=== PATIENT | male | born 2000 | race Caucasian/White ===

== ENCOUNTER 2022-01-10 17:21 | Emergency (ER) | payer MEDICAID, SELFPAY ==
[~2022-01-10] VITALS: Ht 182.9 cm; Wt 95.3 kg
[2022-01-10 17:25] VITALS: BP_SYST 127
--- NOTE | 2022-01-10 17:25 | NUR ---
Placed in room 7 . Placed on rough rice tender, blood pressure machine and pulse oximeter. To gown for exam. Side rails up. Report given to DEXTER BARKER.
--- NOTE | 2022-01-10 17:36 | NUR ---
21 years old male walking to er c/o right buttock pain red/warm, hard to touch.
--- NOTE | 2022-01-10 17:52 | NUR ---
consent sign for CT with IV contrast.
[2022-01-10 17:57] LABS: HEMATOCRIT 42.8 % (36-54); HEMOGLOBIN 14.6 g/dL (14.0-18.0); MEAN CORPUSCULAR HEMOGLOBIN 30 pg (27-31); MEAN CORPUSCULAR HGB CONC 34 % (32-36); MEAN CORPUSCULAR VOLUME 88 fL (79.0-98.0); PLATELET COUNT (AUTO) 195 K/uL (130-430); RED BLOOD CELL COUNT(AUTO) 4.86 MIL/uL (4.2-6.2)
[2022-01-10] MEDS ORDERED: MORPHINE 4 MG INJ. 4 MG/ML VIAL IVP ONE (18:00)
[2022-01-10 18:11] LABS: CALCIUM 8.9 mg/dL (8.4-11.0); CREATININE 1.03 mg/dL (0.55-1.30); POTASSIUM 3.7 mmol/L (3.5-5.1)
[2022-01-10 18:17] LABS: ALBUMIN 4.4 g/dL (3.4-4.8); TOTAL BILIRUBIN 1.1 mg/dL (0.0-1.0)
[2022-01-10 18:54] LABS: BAND % (MANUAL) 4 % (0-6); BASOPHILS % (MANUAL) 0 % (0-2); EOSINOPHILS % (MANUAL) 1 % (0-7); LYMPHOCYTES % (MANUAL) 11 % (20-46); MONOCYTES % (MANUAL) 3 % (0-11)
--- NOTE | 2022-01-10 19:11 | NUR ---
report endorsed to nurse Fabian.
--- NOTE | 2022-01-10 19:31 | NUR ---
PT LAYING ON PAT IN NA.D GF AT BEDSIDE. PT REPORTS FEELING BETTER AFTER PAIN MEDICATION GIVEN EARLIER. WAITING FOR TEST RESULTS. WILL CONT TO MONITOR.
[2022-01-10] MEDS ORDERED: CEPH-548 PO (20:17)
[2022-01-10 20:26] VITALS: BP_SYST 129
--- NOTE | 2022-01-10 20:27 | NUR ---
Patient given written and verbal discharge instructions and verbalizes understanding. ER MD discussed with patient the results and treatment provided. Patient in stable condition. ID arm band removed. IV catheter removed intact and dressing applied, no active bleeding. Rx of keflex given. Patient educated on pain management and to follow up with PMD. Pain Scale . Opportunity for questions provided and answered. Medication side effect fact sheet provided.
== END 2022-01-10 20:26 | disposition home or self-care (01) ==
LOC: SED 17:21
DX: L03.317 Cellulitis of buttock (principal); Z79.899 Other long term (current) drug therapy
CPT/HCPCS: 36415; 72193; 76376; 80053; 85007; 85027; 96374; 99285; J2270; Q9967

== ENCOUNTER 2022-01-17 20:51 | Emergency (ER) | payer MEDICAID, SELFPAY ==
[~2022-01-17] VITALS: Ht 182.9 cm; Wt 95.3 kg
[~2022-01-17 20:51] MED LIST: CEPH-548 PO
[2022-01-17 22:30] VITALS: BP_SYST 130
--- NOTE | 2022-01-17 22:34 | NUR ---
ER examining patient in triage
--- NOTE | 2022-01-17 22:37 | NUR ---
Patient triaged and placed in bed 6. VSS and patient appears in no acute distress at this time. Patient ambulatory, accompanied by family.
[2022-01-17] MEDS ORDERED: MORPHINE 4 MG INJ. 4 MG/ML VIAL IVP ONE (23:00)
[2022-01-17] MEDS ORDERED: LIDOCAINE/EPI 1% 1:100000 20 ML VIAL INJ ONE (23:00)
[2022-01-17] MEDS ORDERED: CEFAZOLIN 2 GM IVPB PREMIX 50 ML IV ONE (23:00)
[2022-01-17] MEDS ORDERED: CEFAZOLIN 1 GM IVPB PREMIX 100 ML IV ONE (23:39)
[2022-01-18] MEDS ORDERED: CEPH-548 PO (01:28)
[2022-01-18] MEDS ORDERED: NAPR-1172 PO (01:28)
[2022-01-18 01:40] VITALS: BP_SYST 121
== END 2022-01-18 01:38 | disposition home or self-care (01) ==
LOC: SED 20:51
DX: K61.1 Rectal abscess (principal); Z91.018 Allergy to other foods
CPT/HCPCS: 36415; 46040; 87040; 96374; 96375; 99284; J0690 ×2; J2270; 99283

== ENCOUNTER 2022-01-21 10:55 | Emergency (ER) | payer MEDICAID ==
[~2022-01-21] VITALS: Ht 152.4 cm; Wt 95.3 kg
[~2022-01-21 10:55] MED LIST changes: +NAPR-1172 PO
[2022-01-21 11:20] VITALS: BP_SYST 119
[2022-01-21 12:40] VITALS: BP_SYST 126
== END 2022-01-21 12:46 | disposition home or self-care (01) ==
LOC: SED 10:55
DX: L02.31 Cutaneous abscess of buttock (principal); Z48.00 Encounter for change or removal of nonsurgical wound dressing; Z79.899 Other long term (current) drug therapy
CPT/HCPCS: 99281; 99282